=== PATIENT | female | born 1965 | race Caucasian/White ===

== ENCOUNTER 2017-11-02 17:53 | Emergency (ER) | payer SELFPAY ==
--- NOTE | 2017-11-02 19:10 | RAD ---
RIGHT THUMB THREE VIEWS: 11/02/17 HISTORY: 51-year-old female with thumb pain following an injury after a trip and fall. IMPRESSION: Mild degenerative changes. No fracture or dislocation or other acute process. POS: [facility]
== END 2017-11-02 19:51 | disposition home or self-care (01) ==
LOC: ERS 17:53
DX: S60.011A Contusion of right thumb without damage to nail, initial encounter (principal); I10 Essential (primary) hypertension; F31.9 Bipolar disorder, unspecified; F41.9 Anxiety disorder, unspecified; F17.210 Nicotine dependence, cigarettes, uncomplicated; W19.XXXA Unspecified fall, initial encounter